=== PATIENT | female | born 1955 | race American Indian/Alaskan Native ===

== ENCOUNTER 2017-05-04 08:55 | Day surgery (SDC) | payer OTHER ==
[2017-05-04] MEDS ORDERED: NACL 0.9% 500 ML 500 ML ONE (09:20)
[2017-05-04] MEDS ORDERED: ECOTRIN PO ONE ×2 (09:20→09:22)
[2017-05-04 09:43] LABS: Basophils % (Auto) 0.7 % (0.0-1.8); Eosinophils % (Auto) 2.1 % (0.0-4.3); Hematocrit 35.2 % (30.3-42.9); Hemoglobin 11.7 gm/dl (10.1-14.3); Mean Corpuscular HGB Conc 33 % (30-34); Mean Corpuscular Hemoglobin 30 pg (28-32); Mean Corpuscular Volume 89 fl (79-97); Platelet Count 298 K/mm3 (140-440); Red Blood Count 3.96 M/mm3 (3.65-5.03); Red Cell Distribution Width 15.1 % (13.2-15.2); White Blood Count 7.2 K/mm3 (4.5-11.0)
[2017-05-04 09:55] LABS: Anion Gap 17 mmol/L; Blood Urea Nitrogen 19 mg/dL (7-17); Calcium 9.1 mg/dL (8.4-10.2); Carbon Dioxide 27 mmol/L (22-30); Glucose 102 mg/dL (65-100); Potassium 4.1 mmol/L (3.6-5.0); Sodium 142 mmol/L (137-145)
[2017-05-04] MEDS ORDERED: NACL 0.9% 500 ML 500 ML IV SCH (10:00)
[2017-05-04 10:10] LABS: INR 0.94 (0.87-1.13)
[2017-05-04] MEDS ORDERED: HEPARIN/NS 5000 UNIT/500ML(CATH LAB) 1,000 ML IR ONE (11:22)
[2017-05-04] MEDS ORDERED: NITROGLYCERIN SYRINGE 3 ML ONE (11:23)
[2017-05-04] MEDS: SUBLIMAZE ONE ×2 (11:35→11:40)
[2017-05-04] MEDS: CALAN ONE ×2 (11:35→11:46)
[2017-05-04] MEDS: XYLOCAINE 2% INFILTRATI ONE ×2 (11:35→11:44)
[2017-05-04] MEDS: VERSED ONE ×2 (11:35→11:40)
[2017-05-04] MEDS: HEPARIN 10,000 UNITS/10 ML ONE ×2 (11:36→11:46)
--- NOTE | 2017-05-04 13:01 | Short Stay Summary ---
Short Stay Documentation Date of service: 05/04/17 - History H&P: obtained from office - Allergies and Medications Current Medications: Allergies Penicillins Allergy (Verified 12/08/13 19:25) Hives acromycin Allergy (Intermediate, Uncoded 05/04/17 09:50) Shortness of Breath Hives Home Medications Medication Instructions Recorded Confirmed Last Taken Type Lisinopril/Hydrochlorothiazide 25 mg PO DAILY 12/08/13 05/04/17 05/04/17 07:00 History [Zestoretic 20-25 mg] 1 tab Albuterol Sulfate [Ventolin HFA] 2 puff INHALATION PRN PRN 05/04/17 05/04/17 History 2 puff Aspirin [Aspirin TAB] 325 mg PO DAILY 05/04/17 05/04/17 05/03/17 History 325mg AtorvaSTATin [Lipitor] 40 mg PO DAILY 05/04/17 05/04/17 05/03/17 History 40mg Carvedilol [Coreg] 3.125 mg PO BID 05/04/17 05/04/17 05/03/17 History 3.125mg Celecoxib [celeBREX] 200 mg PO DAILY 05/04/17 05/04/17 05/03/17 History 200mg Esomeprazole Magnesium [NexIUM] 40 mg PO DAILY 05/04/17 05/04/17 05/03/17 History 40mg Isosorbide Dinitrate [Isosorbide 30 mg PO DAILY 05/04/17 05/04/17 05/03/17 History Dinitrate] 30mg clonazePAM [Klonopin] 2 tab PO HS 05/04/17 05/04/17 05/03/17 History 2 tab Active Medications Sodium Chloride (Nacl 0.9% 500 Ml) 500 mls @ 50 mls/hr IV DIRECT HUBERT Stop: 05/04/17 19:59 Last Admin: 05/04/17 10:00 Dose: 50 mls/hr - Brief post op/procedure progress note Date of procedure: 05/04/17 Pre-op diagnosis: abnormal stress test; chest pain Post-op diagnosis: same Procedure: C - see cath report Anesthesia: local Estimated blood loss: none Pathology: none Condition: stable - Disposition Condition at discharge: Stable Disposition: DC-01 TO HOME OR SELFCARE - Discharge Diagnoses (1) Chest pain Status: Chronic Qualifiers: Chest pain type: C Ischemic chest pain type: I (2) Abnormal stress test Status: Ruled-out (3) HTN (hypertension) Status: Chronic Qualifiers: Hypertension type: H (4) Hyperlipidemia Status: Chronic Qualifiers: Hyperlipidemia type: H Short Stay Discharge Plan Activity: advance as tolerated Diet: low fat, low cholesterol, low salt Wound: open to air, keep clean and dry Follow up with: MAGALI BOONE JR, MD [Primary Care Provider] - 7 Days ANDRE PRESSLEY MD [Staff Physician] - 7 Days ([place] office on 05/18/2017 @ 2: 30PM)
[2017-05-04 14:11] VITALS: BP 102/57
--- NOTE | 2017-05-04 14:47 | Cardiac Catherization Report ---
SURGEON: Jarad Loera MD ORDERING PHYSICIAN: Dr. Xiomara Matt. CLINICAL INFORMATION: This is a 61-year-old female, morbidly obese. She has hypertension and hyperlipidemia, has had recurrent chest pain and abnormal stress test. She is here for left heart catheterization. Left heart catheterization performed via the right radial artery, sterile technique, local anesthesia, 6-Maldivian radial sheath inserted. Left system engaged with a JL3.5 catheter. FINDINGS: Left main is large and patent, bifurcates to large LAD, patent proximally and distally small diagonal 1 and 2 that are patent. Circumflex and AV groove is a large caliber vessel that is patent and a small to medium caliber OM1 that is patent, moderate tortuosity. RCA is a large dominant vessel, patent from proximally and distally. PDA and PLV are small caliber vessels that are patent. LV gram done in NAM and BELGIAN view shows normal LV function. LVEDP is 60 mm, LV is 125/16, aortic is 120/64. No gradient across the aortic valve on pullback. 5-Maldivian catheters were taken over a guidewire, 6-Maldivian radial sheath was discontinued. Radial dressing applied. No hematoma. No bleeding, normal coronaries, right dominant system, noncardiac chest pain. RECOMMENDATION: Continue risk factor modification post-cath care. JOB# [id number] RAJEEV/ELIZA NEVAREZ
== END 2017-05-04 14:30 | disposition home or self-care (01) ==
LOC: OPU 08:55
PROVIDERS: ATTEND Internal Medicine
DX: R94.39 Abnormal result of other cardiovascular function study (principal); R07.89 Other chest pain; I10 Essential (primary) hypertension; E78.2 Mixed hyperlipidemia; E66.01 Morbid (severe) obesity due to excess calories; Z68.37 Body mass index [BMI] 37.0-37.9, adult; Z79.899 Other long term (current) drug therapy; Z88.0 Allergy status to penicillin; Z88.1 Allergy status to other antibiotic agents; Z82.49 Family history of ischemic heart disease and other diseases of the circulatory system
CPT/HCPCS: 36415; 80048; 85025; 85610; 85730; 93005; 93010; 93458; C1769; C1894; J1644; J2250; J3010; J7040; Q9967

== ENCOUNTER 2018-02-08 19:32 | Emergency (ER) | payer OTHER ==
[2018-02-08 21:28] LABS: Basophils # (Auto) 0.1 K/mm3 (0.0-0.1); Basophils % (Auto) 0.7 % (0.0-1.8); Eosinophils # (Auto) 0.1 K/mm3 (0.0-0.4); Eosinophils % (Auto) 1.7 % (0.0-4.3); Hematocrit 35.1 % (30.3-42.9); Hemoglobin 11.3 gm/dl (10.1-14.3); Lymphocytes # (Auto) 3.8 K/mm3 (1.2-5.4); Lymphocytes % (Auto) 50.2 % (13.4-35.0); Mean Corpuscular HGB Conc 32 % (30-34); Mean Corpuscular Hemoglobin 29 pg (28-32); Mean Corpuscular Volume 90 fl (79-97); Monocytes # (Auto) 0.4 K/mm3 (0.0-0.8); Monocytes % (Auto) 5.9 % (0.0-7.3); Platelet Count 291 K/mm3 (140-440); Red Blood Count 3.89 M/mm3 (3.65-5.03); Red Cell Distribution Width 15.3 % (13.2-15.2)
--- NOTE | 2018-02-08 21:42 | Emergency Department Report ---
ED Lower Extremity HPI - General Chief Complaint: Extremity Injury, Lower Stated Complaint: SHORTNESS OF BREATH, LEG CRAMPS Time Seen by Provider: 02/08/18 21:04 Source: patient Mode of arrival: Ambulatory Limitations: No Limitations - History of Present Illness Initial Comments: Patient said this morning she had cramping of a right lower extremity. Later on in the morning she felt a knot in her calf muscle on the right side. This evening she felt shortness of breath and called her doctor and he advised her to come into the emergency room. Patient is presently not complaining of any shortness of breath. She denies any cough or fever MD Complaint: other (right leg pain) -: Gradual Injury: Leg: Right Place: home Severity: mild, moderate Improves With: nothing Worsens With: nothing Other Symptoms: SOB - Related Data Home Medications Medication Instructions Recorded Confirmed Last Taken Lisinopril/Hydrochlorothiazide 25 mg PO DAILY 12/08/13 05/04/17 05/04/17 07:00 [Zestoretic 20-25 mg] 1 tab Albuterol Sulfate [Ventolin HFA] 2 puff INHALATION PRN PRN 05/04/17 05/04/17 2 puff Aspirin [Aspirin TAB] 325 mg PO DAILY 05/04/17 05/04/17 05/03/17 325mg AtorvaSTATin [Lipitor] 40 mg PO DAILY 05/04/17 05/04/17 05/03/17 40mg Carvedilol [Coreg] 3.125 mg PO BID 05/04/17 05/04/17 05/03/17 3.125mg Celecoxib [celeBREX] 200 mg PO DAILY 05/04/17 05/04/17 05/03/17 200mg Esomeprazole Magnesium [NexIUM] 40 mg PO DAILY 05/04/17 05/04/17 05/03/17 40mg Isosorbide Dinitrate 30 mg PO DAILY 05/04/17 05/04/17 05/03/17 30mg clonazePAM [Klonopin] 2 tab PO HS 05/04/17 05/04/17 05/03/17 2 tab Allergies Allergy/AdvReac Type Severity Reaction Status Date / Time Penicillins Allergy Hives Verified 12/08/13 19:25 acromycin Allergy Intermediate Shortness Uncoded 05/04/17 09:50 of Breath ED Review of Systems ROS: Stated complaint: SHORTNESS OF BREATH, LEG CRAMPS Other details as noted in HPI Comment: All other systems reviewed and negative ED Past Medical Hx - Past Medical History Hx Hypertension: Yes Hx Arthritis: Yes Hx Asthma: Yes Additional medical history: Angina - Surgical History Additional Surgical History: hysterectomy - Social History Smoking Status: Never Smoker - Medications Home Medications: Home Medications Medication Instructions Recorded Confirmed Last Taken Type Lisinopril/Hydrochlorothiazide 25 mg PO DAILY 12/08/13 05/04/17 05/04/17 07:00 History [Zestoretic 20-25 mg] 1 tab Albuterol Sulfate [Ventolin HFA] 2 puff INHALATION PRN PRN 05/04/17 05/04/17 History 2 puff Aspirin [Aspirin TAB] 325 mg PO DAILY 05/04/17 05/04/17 05/03/17 History 325mg AtorvaSTATin [Lipitor] 40 mg PO DAILY 05/04/17 05/04/17 05/03/17 History 40mg Carvedilol [Coreg] 3.125 mg PO BID 05/04/17 05/04/17 05/03/17 History 3.125mg Celecoxib [celeBREX] 200 mg PO DAILY 05/04/17 05/04/17 05/03/17 History 200mg Esomeprazole Magnesium [NexIUM] 40 mg PO DAILY 05/04/17 05/04/17 05/03/17 History 40mg Isosorbide Dinitrate 30 mg PO DAILY 05/04/17 05/04/17 05/03/17 History 30mg clonazePAM [Klonopin] 2 tab PO HS 05/04/17 05/04/17 05/03/17 History 2 tab ED Physical Exam - General Limitations: No Limitations General appearance: alert, in no apparent distress - Head Head exam: Present: atraumatic, normocephalic - Eye Eye exam: Present: normal appearance - ENT ENT exam: Present: mucous membranes moist - Neck Neck exam: Present: normal inspection - Respiratory Respiratory exam: Present: normal lung sounds bilaterally. Absent: respiratory distress - Cardiovascular Cardiovascular Exam: Present: regular rate, normal rhythm. Absent: systolic murmur, diastolic murmur, rubs, gallop - GI/Abdominal GI/Abdominal exam: Present: soft, normal bowel sounds. Absent: tenderness - Rectal Rectal exam: Present: deferred - Extremities Exam Extremities exam: Present: normal inspection, full ROM, tenderness (mild calf tenderness to palpation on the right side). Absent: pedal edema - Back Exam Back exam: Present: normal inspection - Neurological Exam Neurological exam: Present: alert, oriented X3 - Psychiatric Psychiatric exam: Present: normal affect, normal mood - Skin Skin exam: Present: warm, dry, intact, normal color. Absent: rash ED Course Vital Signs 02/08/18 02/08/18 02/08/18 19:37 20:55 21:00 Temperature 98.9 F Pulse Rate 65 Respiratory 18 Rate Blood Pressure 142/66 Blood Pressure 144/73 [Left] O2 Sat by Pulse 98 98 99 Oximetry ED Lower Extremity MDM - Lab Data Result diagrams: 02/08/18 21:08 02/08/18 21:08 - Radiology Data Radiology results: report reviewed - Medical Decision Making patient was advised to expect a call from vascular lab for ultrasound of right leg to rule out dvt Critical care attestation.: If time is entered above; I have spent that time in minutes in the direct care of this critically ill patient, excluding procedure time. ED Disposition Clinical Impression: Right leg pain Disposition: DC-01 TO HOME OR SELFCARE Is pt being admited?: No Does the pt Need Aspirin: No Condition: Stable Additional Instructions: expect the vascular lab. to call you about ultrasound of your right leg anytime after 9am today to rule out a blood clot in the leg. take tylenol as needed for pain Referrals: MAGALI BOONE JR, MD [Primary Care Provider] - 3-5 Days Time of Disposition: 00:36 Print Language: AMHARIC
[2018-02-08 21:55] LABS: Alanine Aminotransferase 10 units/L (7-56); Albumin 3.7 g/dL (3.9-5); BUN/Creatinine Ratio 23; Blood Urea Nitrogen 18 mg/dL (7-17); Calcium 8.7 mg/dL (8.4-10.2); Hemolysis Index 6
--- NOTE | 2018-02-08 23:49 | Cat Scan Report ---
FINAL REPORT PROCEDURE: CT ANGIO CHEST TECHNIQUE: Computerized tomographic angiography of the chest was performed after the IV injection of iodinated nonionic contrast including image processing. The image data was postprocessed using 2-dimensional multiplanar reformatted (MPR) and 3-dimensional (MIP and/or volume rendered) techniques. HISTORY: pulmonary embolism COMPARISON: No prior studies are available for comparison. Pulmonary embolism. Aorta is unremarkable No acute pulmonary process Cholelithiasis. Ultrasound evaluation is recommended to rule out cholecystitis. Small hiatal hernia FINDINGS: Heart and pericardium: Normal. Thoracic aorta: Normal. Pulmonary vasculature: Normal. Lymph nodes: No enlarged thoracic lymph nodes. Lungs: Normal. Pleural space: No effusion, thickening, or pneumothorax. Musculoskeletal structures: Moderate degree degenerative changes in the form of marginal osteophyte formation are noted involving the lower thoracic spine. Disc space vacuum phenomenon is noted involving upper thoracic spine.. Upper abdominal structures: Small hiatal hernia is noted. There are multiple calculi in the gallbladder largest measuring 2.4 centimeters. IMPRESSION: No evidence of
[2018-02-09] MEDS ORDERED: LOVENOX SUB-Q STA (00:09)
[2018-02-09 00:39] VITALS: BP 152/76
== END 2018-02-09 00:49 | disposition home or self-care (01) ==
LOC: ED 19:32
DX: M79.604 Pain in right leg (principal); R25.2 Cramp and spasm; R06.02 Shortness of breath; I10 Essential (primary) hypertension; M19.90 Unspecified osteoarthritis, unspecified site; J45.909 Unspecified asthma, uncomplicated; Z90.710 Acquired absence of both cervix and uterus; Z88.0 Allergy status to penicillin; Z88.1 Allergy status to other antibiotic agents
CPT/HCPCS: 36415; 71275; 80053; 85025; 85379; 93005; 93010; 96372; 99284; J1650; Q9967

== ENCOUNTER 2018-02-09 11:49 | Outpatient (CLI) | payer OTHER ==
--- NOTE | 2018-02-13 17:34 | Vascular Lab Report ---
Right Lower Extremity Venous Duplex Study: Reason for Exam: Pain and swelling of the right lower extremity. Comments on the Right: All veins visualized are freely compressible without evidence of internal echogenicity. Flow is spontaneous and phasic throughout. No evidence of acute or chronic thrombus is seen in any of the vessels visualized. A soft tissue change in the right knee area is consistent with a Giles's cyst. Comments on the Left: A limited duplex study was done of the proximal veins of the left lower extremity. All veins visualized are freely compressible without evidence of internal echogenicity. Flow is spontaneous and phasic throughout. No evidence of acute or chronic thrombus is seen in any of the vessels visualized. Impression: No evidence of acute or chronic deep venous thrombosis in the right lower extremity. A soft tissue change in the right knee area is consistent with a Giles's cyst.
== END 2018-02-09 11:50 | disposition home or self-care (01) ==
LOC: VAS 11:49
PROVIDERS: ATTEND Family Medicine
DX: M79.604 Pain in right leg (principal); M79.89 Other specified soft tissue disorders

== ENCOUNTER 2018-02-22 05:04 | Inpatient (IN) | payer OTHER ==
[2018-02-22] MEDS ORDERED: DUONEB *Not for PRN Use IH ONE ×3 (05:09→05:51)
--- NOTE | 2018-02-22 09:19 | XRay Report ---
CHEST 2 VIEWS INDICATION: Shortness of breath. COMPARISON: 12/08/2013. FINDINGS: PA and lateral chest radiographs demonstrate normal cardiomediastinal silhouette. Clear lungs. Multilevel thoracic spondylosis. CONCLUSION: No acute disease in the chest. Thank you for the opportunity to participate in this patient's care.
[2018-02-22] MEDS ORDERED: PROVENTIL IH ONE ×2 (09:20→09:26)
[2018-02-22] MEDS ORDERED: NORCO 5/325 PO ONE (09:20)
[2018-02-22] MEDS ORDERED: MAGNESIUM SULFATE 2GM/50ML 2 GM/50 ML BAG IV ONE (09:20)
[2018-02-22] MEDS ORDERED: TESSALON PERLES PO ONE (09:20)
[2018-02-22 09:23] LABS: BUN/Creatinine Ratio 23; Blood Urea Nitrogen 18 mg/dL (7-17); Calcium 8.8 mg/dL (8.4-10.2); Hemolysis Index 8
[2018-02-22 09:24] LABS: Basophils % (Auto) 0.2 % (0.0-1.8); Eosinophils % (Auto) 0.3 % (0.0-4.3); Hematocrit 34.4 % (30.3-42.9); Hemoglobin 11.1 gm/dl (10.1-14.3); Lymphocytes # (Auto) 1.3 K/mm3 (1.2-5.4); Lymphocytes % (Auto) 15.7 % (13.4-35.0); Mean Corpuscular HGB Conc 32 % (30-34); Mean Corpuscular Hemoglobin 29 pg (28-32); Mean Corpuscular Volume 91 fl (79-97); Monocytes # (Auto) 0.3 K/mm3 (0.0-0.8); Monocytes % (Auto) 3.3 % (0.0-7.3); Platelet Count 293 K/mm3 (140-440); Red Blood Count 3.78 M/mm3 (3.65-5.03); Red Cell Distribution Width 15.8 % (13.2-15.2)
--- NOTE | 2018-02-22 09:26 | Emergency Department Report ---
ED Shortness of Breath HPI - General Chief Complaint: Dyspnea/Respdistress Stated Complaint: SHORTNESS OF BREATH Time Seen by Provider: 02/22/18 08:45 Source: patient Mode of arrival: Wheelchair Limitations: No Limitations - History of Present Illness Initial Comments: 62-year-old female asthma, arthritis, and hypertension presents to the Hospital complaining of shortness of breath and nonproductive cough times one week. On the patient went to her aircrewman is seen by one of Dr. Dill partners. She received an IM steroid shot. The next day she repositions it to [facility] ER and she IV steroids, nebs, and discharged on cough medicine and steroids. Last night patient has significant wheezing and shortness of breath and called the nurses line and was advised to come to the ER for treatment. Patient repeats a MAXIMUM TEMPERATURE of 101 at home. Complains of bilateral generalized moderate chest pain secondary to cough. PMD: Mervin Dominguez aircrewman: Dr. Dill - Related Data Home Medications Medication Instructions Recorded Confirmed Last Taken Lisinopril/Hydrochlorothiazide 25 mg PO DAILY 12/08/13 05/04/17 05/04/17 07:00 [Zestoretic 20-25 mg] 1 tab Albuterol Sulfate [Ventolin HFA] 2 puff INHALATION PRN PRN 05/04/17 05/04/17 2 puff Aspirin [Aspirin TAB] 325 mg PO DAILY 05/04/17 05/04/17 05/03/17 325mg AtorvaSTATin [Lipitor] 40 mg PO DAILY 05/04/17 05/04/17 05/03/17 40mg Carvedilol [Coreg] 3.125 mg PO BID 05/04/17 05/04/17 05/03/17 3.125mg Celecoxib [celeBREX] 200 mg PO DAILY 05/04/17 05/04/17 05/03/17 200mg Esomeprazole Magnesium [NexIUM] 40 mg PO DAILY 05/04/17 05/04/17 05/03/17 40mg Isosorbide Dinitrate 30 mg PO DAILY 05/04/17 05/04/17 05/03/17 30mg clonazePAM [Klonopin] 2 tab PO HS 05/04/17 05/04/17 05/03/17 2 tab Allergies Allergy/AdvReac Type Severity Reaction Status Date / Time Penicillins Allergy Hives Verified 12/08/13 19:25 acromycin Allergy Intermediate Shortness Uncoded 05/04/17 09:50 of Breath ED Review of Systems ROS: Stated complaint: SHORTNESS OF BREATH Other details as noted in HPI Comment: All other systems reviewed and negative ED Past Medical Hx - Past Medical History Previous Medical History?: Yes Hx Hypertension: Yes Hx Arthritis: Yes Hx Asthma: Yes Additional medical history: Angina - Surgical History Past Surgical History?: Yes Additional Surgical History: hysterectomy - Social History Smoking Status: Never Smoker Substance Use Type: None - Medications Home Medications: Home Medications Medication Instructions Recorded Confirmed Last Taken Type Lisinopril/Hydrochlorothiazide 25 mg PO DAILY 12/08/13 05/04/17 05/04/17 07:00 History [Zestoretic 20-25 mg] 1 tab Albuterol Sulfate [Ventolin HFA] 2 puff INHALATION PRN PRN 05/04/17 05/04/17 History 2 puff Aspirin [Aspirin TAB] 325 mg PO DAILY 05/04/17 05/04/17 05/03/17 History 325mg AtorvaSTATin [Lipitor] 40 mg PO DAILY 05/04/17 05/04/17 05/03/17 History 40mg Carvedilol [Coreg] 3.125 mg PO BID 05/04/17 05/04/17 05/03/17 History 3.125mg Celecoxib [celeBREX] 200 mg PO DAILY 05/04/17 05/04/17 05/03/17 History 200mg Esomeprazole Magnesium [NexIUM] 40 mg PO DAILY 05/04/17 05/04/17 05/03/17 History 40mg Isosorbide Dinitrate 30 mg PO DAILY 05/04/17 05/04/17 05/03/17 History 30mg clonazePAM [Klonopin] 2 tab PO HS 05/04/17 05/04/17 05/03/17 History 2 tab ED Physical Exam - General Limitations: No Limitations - Other Other exam information: General: No limitations, patient is alert in no acute distress Head exam: Atraumatic, normocephalic Eyes exam: Normal appearance, pupils equal reactive to light, extraocular movements intact ENT: Moist mucous membrane, normal oropharynx Neck exam: Normal inspection, full range of motion, no meningismus nontender Respiratory exam: Frequent dry cough. Bilateral expiratory wheezing Cardiovascular: Normal rate and rhythm, normal heart sounds Abdomen: Soft, nondistended, and nontender, with normal bowel sounds, no rebound, or guarding Extremity: Full range of motion normal inspection no deformity, no calf tenderness or edema Back: Normal Inspection, full range of motion, no tenderness Neurologic: Alert, oriented x3, cranial nerves intact, no motor or sensory deficit Psychiatric: normal affect, normal mood Skin: Warm, dry, intact ED Course Vital Signs 02/22/18 02/22/18 02/22/18 05:06 05:18 09:03 Temperature 98.0 F 98 F Pulse Rate 68 69 75 Pulse Rate [ Anterior Bilateral Throughout] Respiratory 16 18 Rate Respiratory Rate [Anterior Bilateral Throughout] Blood Pressure 135/73 135/73 Blood Pressure [Left] O2 Sat by Pulse 96 18 L 96 Oximetry 02/22/18 02/22/18 02/22/18 09:10 09:35 10:05 Temperature 97.8 F Pulse Rate 74 Pulse Rate [ 84 87 Anterior Bilateral Throughout] Respiratory 20 Rate Respiratory 18 18 Rate [Anterior Bilateral Throughout] Blood Pressure Blood Pressure 129/64 [Left] O2 Sat by Pulse 95 Oximetry - Reevaluation(s) Reevaluation #1: 02/22/18 09:50 Persistent wheezing despite nebs and Solu-Medrol - Consultations Consultation #1: 02/22/18 09:[address] Carter (aircrewman) they will consult ED Medical Decision Making - Lab Data Result diagrams: 02/22/18 08:50 02/22/18 08:54 Lab Results 02/22/18 02/22/18 02/22/18 Range/Units 08:50 08:54 08:54 WBC 8.2 (4.5-11.0) K/mm3 RBC 3.78 (3.65-5.03) M/mm3 Hgb 11.1 (10.1-14.3) gm/dl Hct 34.4 (30.3-42.9) % MCV 91 (79-97) fl MCH 29 (28-32) pg MCHC 32 (30-34) % RDW 15.8 H (13.2-15.2) % Plt Count 293 (140-440) K/mm3 Lymph % (Auto) 15.7 (13.4-35.0) % [place] % (Auto) 3.3 (0.0-7.3) % Eos % (Auto) 0.3 (0.0-4.3) % Baso % (Auto) 0.2 (0.0-1.8) % Lymph # 1.3 (1.2-5.4) K/mm3 [place] # 0.3 (0.0-0.8) K/mm3 Eos # 0.0 (0.0-0.4) K/mm3 Baso # 0.0 (0.0-0.1) K/mm3 Seg Neutrophils % 80.5 H (40.0-70.0) % Seg Neutrophils # 6.6 (1.8-7.7) K/mm3 PT 12.9 (12.2-14.9) Sec. INR 0.93 (0.87-1.13) Sodium 137 (137-145) mmol/L Potassium 3.6 (3.6-5.0) mmol/L Chloride 96.3 L (98-107) mmol/L Carbon Dioxide 26 (22-30) mmol/L Anion Gap 18 mmol/L BUN 18 H (7-17) mg/dL Creatinine 0.8 (0.7-1.2) mg/dL Estimated GFR > 60 ml/min BUN/Creatinine Ratio 23 % Glucose 169 H (65-100) mg/dL Calcium 8.8 (8.4-10.2) mg/dL - EKG Data -: EKG Interpreted by Fl EKG shows normal: sinus rhythm, axis (qrs 50), QRS complexes (qrsd 93), ST-T waves (no stemi) Rate: normal (85) - Radiology Data Radiology results: report reviewed cxr: naf - Medical Decision Making Asthma/bronchitis No infiltrate on chest x-ray The treated with azithromycin She treated with steroids, magnesium, and nebs in the ED with persistent wheezing Hospitalist informed - Differential Diagnosis bronchitis, pneumonia, seasonal allergies, asthma Critical Care Time: No Critical care attestation.: If time is entered above; I have spent that time in minutes in the direct care of this critically ill patient, excluding procedure time. ED Disposition Clinical Impression: Acute bronchitis, Chest pain Disposition: 09 OP ADMIT IP TO THIS HOSP Is pt being admited?: Yes Condition: Stable Time of Disposition: 09:49 (Dr Barr/Jase)
[2018-02-22 09:33] LABS: INR 0.93 (0.87-1.13)
[2018-02-22] MEDS ORDERED: ZITHROMAX 500 MG in NACL 0.9% 250ML 250 ML IV ONE (10:00)
--- NOTE | 2018-02-22 12:29 | History and Physical Report ---
History of Present Illness Date of examination: 02/22/18 Date of admission: 02/22/18 09:50 Chief complaint: Shortness of breath History of present illness: 62-year-old -[place] female with past medical history significant for hypertension asthma presented to the emergency department complaining of shortness of breath over the last 2 days and worsening since last night. Patient had a cough which is productive of yellowish sputum over the last 1 week , associated with wheezing, fever, chills, chest pain which is worsened with cough. 2 days ago the patient went to work except emergency department and she was given steroids, breathing treatment, and discharged home. But yesterday the patient couldn't breathe despite using the breathing treatment and steroids. Patient denies nausea, vomiting, leg swelling. Patient has history of asthma and was taking occasionally albuterol puff. REVIEW OF SYSTEMS: GENERAL: no weight change, no fatigue, no fever HEAD: no head ache EYES: no blurry vision, no acute visual loss EARS: no hearing loss, no discharge, no earache NOSE: no stuffiness, no sneezing, no discharge MOUTH, THROAT AND NECK: no bleeding gums, no sore throat, no swollen neck CARDIAC: no palpitations, no dyspnea on exertion, no orthopnea, no PND, no edema. RESPIRATORY: As stated in the HPI. GI: no decreased appetite, no nausea, no vomiting, no dysphagia, no diarrhea, no constipation, no abdominal pain URINARY: no change in frequency, no urgency, no polyuria, no hematuria, no incontinence MUSCULOSKELETAL: no muscle weakness, no pain, no joint stiffness NEUROLOGIC: no loss of sensation/numbness, no tingling, no tremors, no weakness/ paralysis HEMATOLOGIC: no anemia, no easy bruising SKIN: no rashes ENDOCRINE: no heat/cold intolerance, no polyuria, no polydipsia, no thyroid problems, no diabetes PSYCHIATRIC: no anxiety, no depression, no suicidal ideations Past History Past Medical History: arthritis, hypertension Past Surgical History: hysterectomy Social history: full code. denies: smoking, alcohol abuse, prescription drug abuse, IV drug use Family history: CAD, cancer, stroke Medications and Allergies Allergies Allergy/AdvReac Type Severity Reaction Status Date / Time Penicillins Allergy Hives Verified 12/08/13 19:25 acromycin Allergy Intermediate Shortness Uncoded 05/04/17 09:50 of Breath Home Medications Medication Instructions Recorded Confirmed Last Taken Type Lisinopril/Hydrochlorothiazide 1 each PO QDAY 12/08/13 02/22/18 05/04/17 07:00 History [Zestoretic 20-25 mg] 1 tab Albuterol Sulfate [Ventolin HFA] 2 puff INHALATION PRN PRN 05/04/17 02/22/18 History 2 puff Aspirin [Aspirin TAB] 325 mg PO DAILY 05/04/17 02/22/18 05/03/17 History 325mg Ibuprofen [Motrin] 800 mg PO Q12HR PRN 02/22/18 02/22/18 Unknown History Exam - Physical Exam Narrative exam: Not in cardiopulmonary distress. The patient obese. Vital signs as documented. Head exam is unremarkable. No scleral icterus . Neck is without jugular venous distension, thyromegaly, or carotid bruits. Lungs scattered wheezing. Cardiac exam reveals regular rate and Rhythm. First and second heart sounds normal. No murmurs, rubs or gallops. Abdominal exam reveals normal bowel sounds, no masses, no organomegaly and no aortic enlargement. Extremities are nonedematous and both femoral and pedal pulses are normal. 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 No focal weakness. - Constitutional Vitals: Temp Pulse Resp BP Pulse Ox 97.8 F 81 14 126/59 95 02/22/18 11:59 02/22/18 11:59 02/22/18 11:59 02/22/18 11:59 02/22/18 11:59 Results - Labs CBC & Chem 7: 02/22/18 08:50 02/22/18 08:54 Labs: Laboratory Last Values WBC 8.2 K/mm3 (4.5-11.0) 02/22/18 08:50 RBC 3.78 M/mm3 (3.65-5.03) 02/22/18 08:50 Hgb 11.1 gm/dl (10.1-14.3) 02/22/18 08:50 Hct 34.4 % (30.3-42.9) 02/22/18 08:50 MCV 91 fl (79-97) 02/22/18 08:50 MCH 29 pg (28-32) 02/22/18 08:50 MCHC 32 % (30-34) 02/22/18 08:50 RDW 15.8 % (13.2-15.2) H 02/22/18 08:50 Plt Count 293 K/mm3 (140-440) 02/22/18 08:50 Lymph % (Auto) 15.7 % (13.4-35.0) 02/22/18 08:50 [place] % (Auto) 3.3 % (0.0-7.3) 02/22/18 08:50 Eos % (Auto) 0.3 % (0.0-4.3) 02/22/18 08:50 Baso % (Auto) 0.2 % (0.0-1.8) 02/22/18 08:50 Lymph # 1.3 K/mm3 (1.2-5.4) 02/22/18 08:50 [place]ie # 0.3 K/mm3 (0.0-0.8) 02/22/18 08:50 Eos # 0.0 K/mm3 (0.0-0.4) 02/22/18 08:50 Baso # 0.0 K/mm3 (0.0-0.1) 02/22/18 08:50 Seg Neutrophils % 80.5 % (40.0-70.0) H 02/22/18 08:50 Seg Neutrophils # 6.6 K/mm3 (1.8-7.7) 02/22/18 08:50 PT 12.9 Sec. (12.2-14.9) 02/22/18 08:54 INR 0.93 (0.87-1.13) 02/22/18 08:54 Sodium 137 mmol/L (137-145) 02/22/18 08:54 Potassium 3.6 mmol/L (3.6-5.0) 02/22/18 08:54 Chloride 96.3 mmol/L (98-107) L 02/22/18 08:54 Carbon Dioxide 26 mmol/L (22-30) 02/22/18 08:54 Anion Gap 18 mmol/L 02/22/18 08:54 BUN 18 mg/dL (7-17) H 02/22/18 08:54 Creatinine 0.8 mg/dL (0.7-1.2) 02/22/18 08:54 Estimated GFR > 60 ml/min 04/13/18 08:54 BUN/Creatinine Ratio 23 % 02/22/18 08:54 Glucose 169 mg/dL (65-100) H 02/22/18 08:54 Calcium 8.8 mg/dL (8.4-10.2) 02/22/18 08:54 - Imaging and Cardiology Chest x-ray: report reviewed (no acute chest process identified) Assessment and Plan Assessment and plan: 62-year-old -Pal[place] female with past medical history significant for hypertension, arthritis, asthma, obesity presented to the emergency department complaining of shortness of breath and didn't get better with outpatient treatment. Acute respiratory failure Acute asthma exacerbation Hypertension Obesity - Patient is on IV Solu-Medrol, IV antibiotic, oxygen support, nebulizer treatment - Continue home blood pressure medications - Patient is counseled about weight loss DVT prophylaxis - Lovenox Disposition - Admit to medical floor Advance Directives: Yes VTE prophylaxis?: Chemical Plan of care discussed with patient/family: Yes
[2018-02-22] MEDS: LEVAQUIN 750MG/150ML 750 MG/150 ML BAG IV SCH (14:21)
--- NOTE | 2018-02-22 15:30 | Consultation ---
History of Present Illness Consult date: 02/22/18 Requesting physician: GEORGIE NOLAND Reason for consult: dyspnea History of present illness: 62 y/o female, with asthma, followed by Dr. Dill who has failed outpatient therapy. Came to Ed with persistent shortness of breath. Started on scheduled nebs and IV steroids. Past History Past Medical History: hypertension, other (asthma) Past Surgical History: No surgical history Social history: no significant social history Family history: no significant family history Medications and Allergies Allergies Allergy/AdvReac Type Severity Reaction Status Date / Time Penicillins Allergy Hives Verified 12/08/13 19:25 acromycin Allergy Intermediate Shortness Uncoded 05/04/17 09:50 of Breath Home Medications Medication Instructions Recorded Confirmed Last Taken Type Lisinopril/Hydrochlorothiazide 1 each PO QDAY 12/08/13 02/22/18 05/04/17 07:00 History [Zestoretic 20-25 mg] 1 tab Albuterol Sulfate [Ventolin HFA] 2 puff INHALATION PRN PRN 05/04/17 02/22/18 History 2 puff Aspirin [Aspirin TAB] 325 mg PO DAILY 05/04/17 02/22/18 05/03/17 History 325mg Ibuprofen [Motrin] 800 mg PO Q12HR PRN 02/22/18 02/22/18 Unknown History Active Meds: Active Medications Albuterol/Ipratropium (Duoneb *Not For Prn Use*) 1 ampul IH Q6HRT HUBERT Levofloxacin/Dextrose (Levaquin 750mg/150ml) 750 mg in 150 mls @ 100 mls/hr IV Q24HR HUBERT; Protocol Last Admin: 02/22/18 14:21 Dose: 100 mls/hr Methylprednisolone Sodium Succinate (Solu-Medrol) 40 mg IV Q8HR HUBERT Last Admin: 02/22/18 14:21 Dose: 40 mg Montelukast Sodium (Singulair) 10 mg PO QHS HUBERT Review of Systems All systems: negative Physical Examination Vital signs: Vital Signs Temp Pulse Resp BP Pulse Ox 98.0 F 68 16 135/73 96 02/22/18 05:06 02/22/18 05:06 02/22/18 05:06 02/22/18 05:06 02/22/18 05:06 General appearance: no acute distress, alert Neck: supple Ascultation: Bilateral: diminished breath sounds Percussion: Bilateral: not dull Cardiovascular: regular rate and rhythm Gastrointestinal: normoactive bowel sounds Integumentary: normal Extremities: no edema Results - Laboratory Findings CBC and BMP: 02/23/18 08:17 02/23/18 08:17 PT/INR, D-dimer PT 12.9 Sec. (12.2-14.9) 02/22/18 08:54 INR 0.93 (0.87-1.13) 02/22/18 08:54 Abnormal lab findings: Abnormal Labs 02/22/18 02/22/18 08:50 08:54 RDW 15.8 H Seg Neutrophils % 80.5 H Chloride 96.3 L BUN 18 H Glucose 169 H - Diagnostic Findings Chest x-ray: image reviewed (clear, no evidence of acute disease) Assessment and Plan 62 y/o female with dyspnea 1. Ok with current steroid regimen 2. Ok with scheduled neb treatments, will likely switch to BID pulmicort and brovana at some point 3. OOB to chair and ambulate as tolerated. 4. Remainder per primary
[2018-02-22] MEDS: DUONEB *Not for PRN Use IH SCH ×2 (19:24→20:56)
[2018-02-23] MEDS: SINGULAIR PO SCH ×2 (00:01→21:41)
[2018-02-23] MEDS: LOVENOX SUB-Q SCH ×2 (00:02→21:42)
[2018-02-23] MEDS: DUONEB *Not for PRN Use IH SCH ×4 (01:25→20:26)
[2018-02-23] MEDS: PERCOCET 5/325 PO PRN (03:57)
[2018-02-23 08:53] LABS: Basophils # (Auto) 0.1 K/mm3 (0.0-0.1); Basophils % (Auto) 0.5 % (0.0-1.8); Hematocrit 33.3 % (30.3-42.9); Hemoglobin 10.6 gm/dl (10.1-14.3); Lymphocytes # (Auto) 2.4 K/mm3 (1.2-5.4); Mean Corpuscular HGB Conc 32 % (30-34); Mean Corpuscular Hemoglobin 29 pg (28-32); Mean Corpuscular Volume 91 fl (79-97); Monocytes # (Auto) 0.6 K/mm3 (0.0-0.8); Monocytes % (Auto) 5.2 % (0.0-7.3); Platelet Count 329 K/mm3 (140-440); Red Blood Count 3.68 M/mm3 (3.65-5.03); Red Cell Distribution Width 15.9 % (13.2-15.2)
[2018-02-23 09:11] LABS: BUN/Creatinine Ratio 26; Blood Urea Nitrogen 18 mg/dL (7-17); Calcium 8.8 mg/dL (8.4-10.2); Hemolysis Index 69
[2018-02-23] MEDS: ZESTRIL PO SCH (09:44)
[2018-02-23] MEDS: HCTZ PO SCH (09:44)
[2018-02-23] MEDS: LEVAQUIN 750MG/150ML 750 MG/150 ML BAG IV SCH (09:45)
[2018-02-23] MEDS: ASPIRIN PO SCH (09:45)
[2018-02-23] MEDS ORDERED: LISINOPRIL PO SCH (10:00)
[2018-02-23] MEDS ORDERED: HYDROCHLOROTHIAZIDE PO SCH (10:00)
--- NOTE | 2018-02-23 10:30 | Progress Note ---
Assessment and Plan 62 y/o female with dyspnea no new recs for today. Will continue current regimen. consider switching therapy tomorrow 1. Ok with current steroid regimen 2. Ok with scheduled neb treatments, will likely switch to BID pulmicort and brovana at some point 3. OOB to chair and ambulate as tolerated. 4. Remainder per primary Subjective Date of service: 02/23/18 Interval history: No acute events. Objective Vital Signs - 12hr 02/23/18 02/23/18 02/23/18 01:25 01:35 03:57 Temperature Pulse Rate Pulse Rate [ 83 87 Anterior Bilateral Throughout] Respiratory 18 Rate Respiratory 18 18 Rate [Anterior Bilateral Throughout] Blood Pressure O2 Sat by Pulse Oximetry 02/23/18 02/23/18 02/23/18 07:44 08:52 09:44 Temperature 98.2 F Pulse Rate 72 72 Pulse Rate [ 82 Anterior Bilateral Throughout] Respiratory 18 Rate Respiratory 18 Rate [Anterior Bilateral Throughout] Blood Pressure 138/57 138/67 O2 Sat by Pulse 92 98 Oximetry 02/23/18 10:00 Temperature Pulse Rate Pulse Rate [ Anterior Bilateral Throughout] Respiratory 22 Rate Respiratory Rate [Anterior Bilateral Throughout] Blood Pressure O2 Sat by Pulse Oximetry Constitutional: no acute distress, alert Neck: supple Ascultation: Bilateral: diminished breath sounds Percussion: Bilateral: not dull Cardiovascular: regular rate and rhythm Gastrointestinal: normoactive bowel sounds Integumentary: normal Extremities: no edema CBC and BMP: 02/23/18 08:17 02/23/18 08:17 ABG, PT/INR, D-dimer: ABG POC ABG pH 7.400 (7.35-7.45) 02/22/18 15:51 POC ABG pCO2 39.0 (35-45) 02/22/18 15:51 POC ABG pO2 78 (80-105) L 02/22/18 15:51 POC ABG HCO3 24.2 02/22/18 15:51 POC ABG Total CO2 25 02/22/18 15:51 POC ABG O2 Sat 95 02/22/18 15:51 PT/INR, D-dimer PT 12.9 Sec. (12.2-14.9) 02/22/18 08:54 INR 0.93 (0.87-1.13) 02/22/18 08:54 Abnormal lab findings: Abnormal Labs 02/22/18 02/22/18 02/22/18 08:50 08:54 15:51 WBC RDW 15.8 H Seg Neutrophils % 80.5 H Seg Neutrophils # POC ABG pO2 78 L Sodium Chloride 96.3 L BUN 18 H Glucose 169 H 02/23/18 02/23/18 08:17 08:17 WBC 12.2 H RDW 15.9 H Seg Neutrophils % 74.3 H Seg Neutrophils # 9.1 H POC ABG pO2 Sodium 134 L Chloride 95.6 L BUN 18 H Glucose 145 H
[2018-02-23] MEDS ORDERED: AMBIEN PO PRN (12:42)
--- NOTE | 2018-02-23 12:46 | Progress Note ---
Assessment and Plan Assessment and plan: 62-year-old -[place] female with past medical history significant for hypertension, arthritis, asthma, obesity presented to the emergency department complaining of shortness of breath and didn't get better with outpatient treatment. Acute respiratory failure Acute asthma exacerbation Hypertension Obesity - Patient is on IV Solu-Medrol, IV antibiotic, oxygen support, nebulizer treatment - Cough syrup - Continue home blood pressure medications - Patient is counseled about weight loss - Pulmonary consult appreciated DVT prophylaxis - Lovenox Disposition - Possible DC tomorrow History Interval history: Patient was seen and evaluated this morning, Patient couldn't sleep because cough, SOB is getting better. Hospitalist Physical - Physical exam Narrative exam: Not in cardiopulmonary distress. The patient obese. Vital signs as documented. Head exam is unremarkable. No scleral icterus . Neck is without jugular venous distension, thyromegaly, or carotid bruits. Lungs scattered wheezing. Cardiac exam reveals regular rate and Rhythm. First and second heart sounds normal. No murmurs, rubs or gallops. Abdominal exam reveals normal bowel sounds, no masses, no organomegaly and no aortic enlargement. Extremities are nonedematous and both femoral and pedal pulses are normal. 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 No focal weakness. - Constitutional Vitals: Temp Pulse Resp BP Pulse Ox 98.2 F 72 22 138/67 98 02/23/18 07:44 02/23/18 09:44 02/23/18 10:00 02/23/18 09:44 02/23/18 08:52 Results - Labs CBC & Chem 7: 02/23/18 08:17 02/23/18 08:17 Labs: Laboratory Last Values WBC 12.2 K/mm3 (4.5-11.0) H 02/23/18 08:17 RBC 3.68 M/mm3 (3.65-5.03) 02/23/18 08:17 Hgb 10.6 gm/dl (10.1-14.3) 02/23/18 08:17 Hct 33.3 % (30.3-42.9) 02/23/18 08:17 MCV 91 fl (79-97) 02/23/18 08:17 MCH 29 pg (28-32) 02/23/18 08:17 MCHC 32 % (30-34) 02/23/18 08:17 RDW 15.9 % (13.2-15.2) H 02/23/18 08:17 Plt Count 329 K/mm3 (140-440) 02/23/18 08:17 Lymph % (Auto) 20.0 % (13.4-35.0) 02/23/18 08:17 [place] % (Auto) 5.2 % (0.0-7.3) 02/23/18 08:17 Eos % (Auto) 0.0 % (0.0-4.3) 02/23/18 08:17 Baso % (Auto) 0.5 % (0.0-1.8) 02/23/18 08:17 Lymph # 2.4 K/mm3 (1.2-5.4) 02/23/18 08:17 [place] # 0.6 K/mm3 (0.0-0.8) 02/23/18 08:17 Eos # 0.0 K/mm3 (0.0-0.4) 02/23/18 08:17 Baso # 0.1 K/mm3 (0.0-0.1) 02/23/18 08:17 Seg Neutrophils % 74.3 % (40.0-70.0) H 02/23/18 08:17 Seg Neutrophils # 9.1 K/mm3 (1.8-7.7) H 02/23/18 08:17 PT 12.9 Sec. (12.2-14.9) 02/22/18 08:54 INR 0.93 (0.87-1.13) 02/22/18 08:54 POC ABG pH 7.400 (7.35-7.45) 02/22/18 15:51 POC ABG pCO2 39.0 (35-45) 02/22/18 15:51 POC ABG pO2 78 (80-105) L 02/22/18 15:51 POC ABG HCO3 24.2 02/22/18 15:51 POC ABG Total CO2 25 02/22/18 15:51 POC ABG O2 Sat 95 02/22/18 15:51 POC ABG Base Excess -1 02/22/18 15:51 FiO2 21 % 02/22/18 15:51 Sodium 134 mmol/L (137-145) L 02/23/18 08:17 Potassium 4.5 mmol/L (3.6-5.0) D 02/23/18 08:17 Chloride 95.6 mmol/L (98-107) L 02/23/18 08:17 Carbon Dioxide 26 mmol/L (22-30) 02/23/18 08:17 Anion Gap 17 mmol/L 02/23/18 08:17 BUN 18 mg/dL (7-17) H 02/23/18 08:17 Creatinine 0.7 mg/dL (0.7-1.2) 02/23/18 08:17 Estimated GFR > 60 ml/min 02/23/18 08:17 BUN/Creatinine Ratio 26 % 02/23/18 08:17 Glucose 145 mg/dL (65-100) H 02/23/18 08:17 Calcium 8.8 mg/dL (8.4-10.2) 02/23/18 08:17
[2018-02-23] MEDS: GUAIFENESIN DM SYRUP PO PRN ×2 (14:20→21:40)
[2018-02-24] MEDS: GUAIFENESIN DM SYRUP PO PRN ×2 (01:56→10:40)
[2018-02-24] MEDS ORDERED: XANAX PO ONE (02:03)
[2018-02-24] MEDS: PERCOCET 5/325 PO PRN ×2 (02:16→10:41)
[2018-02-24] MEDS: DUONEB *Not for PRN Use IH SCH ×3 (03:05→13:40)
[2018-02-24 06:21] LABS: Hematocrit 31.8 % (30.3-42.9); Hemoglobin 10.3 gm/dl (10.1-14.3); Mean Corpuscular HGB Conc 33 % (30-34); Mean Corpuscular Hemoglobin 29 pg (28-32); Mean Corpuscular Volume 90 fl (79-97); Platelet Count 329 K/mm3 (140-440); Red Blood Count 3.54 M/mm3 (3.65-5.03); Red Cell Distribution Width 15.9 % (13.2-15.2)
[2018-02-24 06:40] LABS: BUN/Creatinine Ratio 28; Blood Urea Nitrogen 22 mg/dL (7-17); Calcium 8.6 mg/dL (8.4-10.2); Hemolysis Index 8
[2018-02-24 07:07] LABS: Band Neutrophils # (Manual) 1.2 K/mm3; Basophils % (Manual) 0 % (0.0-1.8); Eosinophils % (Manual) 0 % (0.0-4.3); Total Cells Counted 100
[2018-02-24 07:08] LABS: Anisocytosis 1+; Platelet Estimate Consistent w Auto
[2018-02-24 08:52] VITALS: BP 153/73
--- NOTE | 2018-02-24 10:27 | Discharge Summary ---
Providers - Providers Date of Admission: 02/22/18 09:50 Date of discharge: 02/24/18 Attending physician: OLGA STEARNS MD 02/22/18 09:45 Consult to Physician [CONS] Urgent Comment: DR JANSEN NOTIFIED 0940 Consulting Provider: HALEY JANSEN Physician Instructions: Reason For Exam: asthma/bronchitis Primary care physician: MAGALI BOONE Hospitalization Reason for admission: Asthma exacerbation Condition: Stable Disposition: DC-01 TO HOME OR SELFCARE Time spent for discharge: 31 minutes - Discharge Diagnoses (1) Acute bronchitis Status: Acute (2) Chest pain Status: Chronic (3) HTN (hypertension) Status: Chronic (4) Hyperlipidemia Status: Chronic Core Measure Documentation - Palliative Care Palliative Care/ Comfort Measures: Not Applicable - Core Measures Any of the following diagnoses?: none Exam - Physical Exam Narrative exam: Not in cardiopulmonary distress. The patient obese. Vital signs as documented. Head exam is unremarkable. No scleral icterus . Neck is without jugular venous distension, thyromegaly, or carotid bruits. Lungs scattered wheezing. Cardiac exam reveals regular rate and Rhythm. First and second heart sounds normal. No murmurs, rubs or gallops. Abdominal exam reveals normal bowel sounds, no masses, no organomegaly and no aortic enlargement. Extremities are nonedematous and both femoral and pedal pulses are normal. 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 No focal weakness. - Constitutional Vitals: Temp Pulse Resp BP Pulse Ox 98.2 F 77 20 153/73 92 02/24/18 08:10 02/24/18 08:10 02/24/18 09:04 02/24/18 08:10 02/24/18 08:10 Plan Activity: no restrictions Diet: low cholesterol, low salt Follow up with: MAGALI BOONE JR, MD [Primary Care Provider] - 7 Days DAMON MENDOZA MD [Staff Physician] - 7 Days Prescriptions: Albuterol Sulfate [Albuterol 0.63% NEBS] 0.63 mg IH TID PRN #60 ml PRN Reason: Wheezing Levofloxacin [Levaquin TAB] 500 mg PO QDAY #5 tablet Nebulizer and Compressor [[place] Choice Nebulizer] 1 each MC TID #1 each oxyCODONE /ACETAMINOPHEN [Percocet 5/325 mg] 1 tab PO Q6H PRN #10 tablet PRN Reason: Pain, Moderate (4-6) Pantoprazole [Protonix TAB] 40 mg PO QDAY #30 tablet Prednisone [predniSONE 10 mg (6-Day Pack, 21 Tabs)] 10 mg PO .TAPER #1 tab.ds.pk
[2018-02-24] MEDS: LEVAQUIN 750MG/150ML 750 MG/150 ML BAG IV SCH (10:40)
[2018-02-24] MEDS: HCTZ PO SCH (10:43)
[2018-02-24] MEDS: ZESTRIL PO SCH (10:43)
--- NOTE | 2018-02-24 10:43 | Progress Note ---
Assessment and Plan 62 y/o female with dyspnea No objection to discharge Follow up with Fuentes in 10-14 days Will need prolonged steroid taper over 2 weeks time. Subjective Date of service: 02/24/18 Interval history: No acute events. Being discharged. Per IMS, had a panic attack last night. Objective Vital Signs - 12hr 02/23/18 02/24/18 02/24/18 23:55 01:50 02:00 Temperature Pulse Rate Pulse Rate [ 88 100 H Anterior Bilateral Throughout] Respiratory 20 Rate Respiratory 20 20 Rate [Anterior Bilateral Throughout] Blood Pressure O2 Sat by Pulse Oximetry 02/24/18 02/24/18 02/24/18 02:16 03:16 08:10 Temperature 98.2 F Pulse Rate 77 Pulse Rate [ Anterior Bilateral Throughout] Respiratory 20 20 20 Rate Respiratory Rate [Anterior Bilateral Throughout] Blood Pressure 153/73 O2 Sat by Pulse 92 Oximetry 02/24/18 09:04 Temperature Pulse Rate Pulse Rate [ Anterior Bilateral Throughout] Respiratory 20 Rate Respiratory Rate [Anterior Bilateral Throughout] Blood Pressure O2 Sat by Pulse Oximetry Constitutional: no acute distress, alert Neck: supple Ascultation: Bilateral: diminished breath sounds Percussion: Bilateral: not dull Cardiovascular: regular rate and rhythm Gastrointestinal: normoactive bowel sounds Integumentary: normal Extremities: no edema CBC and BMP: 02/24/18 05:08 02/24/18 05:08 ABG, PT/INR, D-dimer: ABG POC ABG pH 7.400 (7.35-7.45) 02/22/18 15:51 POC ABG pCO2 39.0 (35-45) 02/22/18 15:51 POC ABG pO2 78 (80-105) L 02/22/18 15:51 POC ABG HCO3 24.2 02/22/18 15:51 POC ABG Total CO2 25 02/22/18 15:51 POC ABG O2 Sat 95 02/22/18 15:51 PT/INR, D-dimer PT 12.9 Sec. (12.2-14.9) 02/22/18 08:54 INR 0.93 (0.87-1.13) 02/22/18 08:54 Abnormal lab findings: Abnormal Labs 02/22/18 02/22/18 02/22/18 08:50 08:54 15:51 WBC RBC RDW 15.8 H Seg Neutrophils % 80.5 H Seg Neuts % (Manual) Lymphocytes % (Manual) Seg Neutrophils # Seg Neutrophils # Man POC ABG pO2 78 L Sodium Chloride 96.3 L BUN 18 H Glucose 169 H 02/23/18 02/23/18 02/24/18 08:17 08:17 05:08 WBC 12.2 H 12.1 H RBC 3.54 L RDW 15.9 H 15.9 H Seg Neutrophils % 74.3 H Seg Neuts % (Manual) 76.0 H Lymphocytes % (Manual) 12.0 L Seg Neutrophils # 9.1 H Seg Neutrophils # Man 9.2 H POC ABG pO2 Sodium 134 L Chloride 95.6 L BUN 18 H Glucose 145 H 02/24/18 05:08 WBC RBC RDW Seg Neutrophils % Seg Neuts % (Manual) Lymphocytes % (Manual) Seg Neutrophils # Seg Neutrophils # Man POC ABG pO2 Sodium 136 L Chloride 97.2 L BUN 22 H Glucose 128 H
[2018-02-24] MEDS: ASPIRIN PO SCH (10:44)
== END 2018-02-24 14:10 | disposition home or self-care (01) | DRG 189 ==
LOC: ED 05:04 → 3A 09:50
PROVIDERS: ADMIT Internal Medicine; ATTEND Internal Medicine
PROC: 4A033R1 Measurement of Arterial Saturation, Peripheral, Percutaneous Approach (ICD-10-PCS; principal; 2018-02-22)
DX: J96.00 Acute respiratory failure, unspecified whether with hypoxia or hypercapnia (principal); J45.901 Unspecified asthma with (acute) exacerbation; J20.9 Acute bronchitis, unspecified; E66.9 Obesity, unspecified; I10 Essential (primary) hypertension; E78.5 Hyperlipidemia, unspecified; M19.90 Unspecified osteoarthritis, unspecified site; Z79.82 Long term (current) use of aspirin; Z79.899 Other long term (current) drug therapy; Z88.0 Allergy status to penicillin; Z88.1 Allergy status to other antibiotic agents; Z90.710 Acquired absence of both cervix and uterus; Z82.49 Family history of ischemic heart disease and other diseases of the circulatory system; Z80.9 Family history of malignant neoplasm, unspecified; Z82.3 Family history of stroke; Z68.39 Body mass index [BMI] 39.0-39.9, adult
CPT/HCPCS: 36415; 36600; 71046; 80048; 82803; 85007; 85025; 85610; 93005; 93010; 94640; 96374; 96375; J0456; J1650; J1956; J2920; J2930; J3475; J7050

== ENCOUNTER 2018-04-26 11:45 | Outpatient (CLI) | payer OTHER ==
--- NOTE | 2018-04-29 11:34 | Mammography Report ---
BILATERAL DIGITAL SCREENING MAMMOGRAM with CAD : 04/26/18 11:45:00 CLINICAL: Routine screening. COMPARISON:10/25/16 and 08/28/11 FINDINGS: The breasts are heterogeneously dense, which may obscure small masses. No new mass, architectural distortion or suspicious calcifications. IMPRESSION: No mammographic evidence of malignancy. BI-RADS CATEGORY: 2 -- Benign RECOMMENDATION: Routine mammographic screening in one year. COMMENT: Patient follow-up letters are generated by our [employer] application.
== END 2018-04-26 11:46 | disposition home or self-care (01) ==
LOC: SPVWC 11:45
PROVIDERS: ATTEND Family Medicine
DX: Z12.31 Encounter for screening mammogram for malignant neoplasm of breast (principal)
CPT/HCPCS: 77067